=== PATIENT | female | born 1945 ===

== ENCOUNTER → 2017-01-11 | Outpatient (CLI) | payer MEDICARE ==
--- NOTE | 2017-01-13 11:51 | PATHOLOGY ---
PATHOLOGY REPORT * * * * * * * * FINAL DIAGNOSIS: Skin, right eyelid: - Cutaneous tag (fibroepithelial polyp). COMMENT: There is no evidence of malignancy. (JPM:mgr; 01/13/2017) REPORT ELECTRONICALLY SIGNED BY: Drake Barron M.D. DATE/TIME: 01/13/2017 11:50 * * * * * * * * GROSS PATHOLOGY: Received in formalin labeled "Mayra Grimm, eyelid," is a segment of dobbins soft tissue measuring 0.5 cm in maximum dimension. The specimen is submitted entirely in cassette A1. (JPM; 01/12/17) INITIAL CPT CODE(S): 87813 Professional services [place] [address] Technical services performed by [facility] at [address] [place] [address], [facility] [address] [address]. 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
== END | disposition home or self-care (01) ==
LOC: SPEC 17:23
PROVIDERS: ATTEND Ophthalmology
DX: D23.11 Other benign neoplasm of skin of right eyelid, including canthus (principal)
CPT/HCPCS: 88304